=== PATIENT | male | born 1950 | race African-American/Black ===

== ENCOUNTER 2020-05-30 17:24 | Observation (INO) ==
[2020-05-30] MEDS ORDERED: SODIUM CHLORIDE 0.9% 1,000 ML IV STA (18:38)
[2020-05-30] MEDS ORDERED: PANTOPRAZOLE 40 MG VIAL IV STA (18:38)
[2020-05-30] MEDS ORDERED: ONDANSETRON 4 MG/2 ML VIAL IV STA (18:38)
[2020-05-30 19:48] LABS: Basophils % 0.3 % (0.0-0.8); Hematocrit 42.5 VOL% (42.0-52.0); Hemoglobin 14.2 GM/DL (14.0-18.0); Immature Granulocytes % 0.7 %; Immature Granulocytes Absolute 0.05 #; Lymphocytes # 1.4 10*3/uL (1.4-4.0); Lymphocytes % 18.8 % (21.2-54.2); Mean Corpuscular HGB Conc 33.4 GM/DL (32-36); Mean Corpuscular Volume 86.9 FL (87-102); Mean Platelet Volume 10.1 FL (9.6-12.0); Monocytes % 6.3 % (1.7-12.7); Neutrophils % 73.9 % (38.7-73.9); Platelet Count 266 T/CUMM (130-400); Red Blood Count 4.89 MC/CUMM (3.8-5.5); Red Cell Distribution Width 13.1 % (9.3-17.3); White Blood Count 7.6 T/CUMM (4-12)
[2020-05-30 20:16] LABS: Alanine Aminotransferase 41 U/L (16-61); Albumin 2.5 G/DL (3.4-5.0); Alkaline Phosphatase 134 U/L (45-117); Amylase 115 U/L (25-115); Aspartate Amino Transferase 70 U/L (0-37); Blood Urea Nitrogen 64 MG/DL (7-18); Calcium 9.3 MG/DL (8.5-10.1); Estimated Glom Filtration Rate 38 ML/MIN; Glucose 329 MG/DL (74-106); Osmolality,Calculated 307.5 MOS/KG (273-304); Total Protein 8.3 G/DL (6.4-8.3); Troponin I < 0.015 NG/ML (0.00-0.045)
[2020-05-30] MEDS ORDERED: DEXTROSE 50% 25 GM/50 ML VIAL IV PRN (21:33)
[2020-05-30] MEDS ORDERED: GLUCAGON 1 MG VIAL IM PRN (21:33)
[2020-05-30] MEDS ORDERED: ACETAMINOPHEN 325 MG TABLET PO PRN (21:38)
[2020-05-30] MEDS ORDERED: ONDANSETRON 4 MG/2 ML VIAL IV PRN (21:38)
[2020-05-30 21:48] LABS: Apearance,Urine Slightly Hazy (Clear); Bacteria,Urine Many /HPF (Few); Bilirubin,Urine Negative (Negative); Blood, Urine Negative (Negative); Glucose,Urine (UA) Negative (Negative); Hyaline Casts,Urine 19 /LPF (0-3); Ketones,Urine Negative (Negative); Mucus,Urine Few /LPF (Occasional); Nitrite,Urine Negative (Negative); Protein,Urine 30 MG/DL; RBC,Urine 1 /HPF (0-4); Squamous Epithelial Cell,Urine Occasional /HPF (0-10); Urine Color Yellow (Yellow); Urine Specific Gravity 1.014 (1.001-1.035); Urine Urobilinogen < 2.0 EU/DL (0.2-1.0); WBC,Urine 1 /HPF (0-6)
[2020-05-30] MEDS: SODIUM CHLORIDE 0.9% 1,000 ML IV SCH (22:00)
[2020-05-31 05:51] LABS: Albumin 2.3 G/DL (3.4-5.0); Bilirubin,Total 0.6 MG/DL (0.2-1.0); Calcium 8.8 MG/DL (8.5-10.1); Total Protein 7.5 G/DL (6.4-8.3)
[2020-05-31] MEDS: SODIUM CHLORIDE 0.9% 1,000 ML IV SCH (07:03)
[2020-05-31] MEDS: INSULIN REGULAR 100 UNIT/ML SUBCUT SCH ×4 (08:46→21:20)
[2020-05-31] MEDS ORDERED: BISACODYL 10 MG SUPP RECTAL PRN (08:57)
[2020-05-31] MEDS: levETIRAcetam 500 MG TABLET PO SCH ×2 (12:46→21:18)
[2020-05-31] MEDS: ASPIRIN EC 81 MG TABLET PO SCH (12:46)
[2020-05-31] MEDS: PHENYTOIN ER 100 MG CAPSULE PO SCH ×2 (12:46→21:17)
[2020-05-31] MEDS: FAMOTIDINE 20 MG TABLET PO SCH ×2 (12:47→21:19)
[2020-05-31] MEDS: cilostazoL 50 MG TABLET PO SCH ×2 (12:47→21:20)
[2020-05-31] MEDS: amLODIPine 10 MG TABLET PO SCH (12:47)
[2020-05-31] MEDS: SODIUM CHLORIDE 0.45% 1,000 ML IV SCH (12:49)
[2020-05-31] MEDS ORDERED: LABETALOL 20 MG/4 ML SYRINGE IV ONE (13:15)
[2020-05-31] MEDS ORDERED: hydrALAZINE 25 MG TABLET PO SCH (15:00)
[2020-05-31] MEDS ORDERED: hydrALAZINE 10 MG TABLET PO SCH (17:07)
[2020-05-31] MEDS ORDERED: INSULIN GLARGINE 100 UNIT/ML SUBCUT SCH (21:00)
[2020-05-31] MEDS ORDERED: TAMSULOSIN 0.4 MG CAPSULE PO SCH (21:00)
[2020-05-31] MEDS ORDERED: GABAPENTIN 400 MG CAPSULE PO SCH (21:00)
[2020-05-31] MEDS ORDERED: DONEPEZIL 10 MG TABLET PO SCH (21:00)
[2020-05-31] MEDS: DOCUSATE SODIUM 100 MG CAPSULE PO SCH (21:17)
[2020-05-31] MEDS: hydrALAZINE 10 MG TABLET PO SCH (21:17)
[2020-05-31] MEDS: POLYETHYLENE GLYCOL POWDER 17 GM PACK PO SCH (21:19)
[2020-05-31] MEDS: RIVAROXABAN 2.5 MG TABLET PO SCH (21:20)
[2020-06-01] MEDS: SODIUM CHLORIDE 0.45% 1,000 ML IV SCH (05:41)
[2020-06-01 07:23] LABS: Calcium 8.7 MG/DL (8.5-10.1); Osmolality,Calculated 296.6 MOS/KG (273-304)
[2020-06-01] MEDS: INSULIN REGULAR 100 UNIT/ML SUBCUT SCH ×3 (08:32→16:19)
[2020-06-01] MEDS: POLYETHYLENE GLYCOL POWDER 17 GM PACK PO SCH (08:33)
[2020-06-01] MEDS: PHENYTOIN ER 100 MG CAPSULE PO SCH (08:34)
[2020-06-01] MEDS: levETIRAcetam 500 MG TABLET PO SCH (08:35)
[2020-06-01] MEDS: DOCUSATE SODIUM 100 MG CAPSULE PO SCH (08:37)
[2020-06-01] MEDS: hydrALAZINE 10 MG TABLET PO SCH (08:37)
[2020-06-01] MEDS: amLODIPine 10 MG TABLET PO SCH (08:37)
[2020-06-01] MEDS: cilostazoL 50 MG TABLET PO SCH (08:37)
[2020-06-01] MEDS: ASPIRIN EC 81 MG TABLET PO SCH (08:38)
[2020-06-01] MEDS: FAMOTIDINE 20 MG TABLET PO SCH (08:38)
[2020-06-01] MEDS: RIVAROXABAN 2.5 MG TABLET PO SCH (08:39)
[2020-06-01] MEDS ORDERED: ATORVASTATIN 40 MG TABLET PO SCH (09:00)
[2020-06-01 09:40] LABS: Basophils % 0.1 % (0.0-0.8); Eosinophils % 0.3 % (0.00-10.9); Hematocrit 35.3 VOL% (42.0-52.0); Hemoglobin 11.9 GM/DL (14.0-18.0); Immature Granulocytes Absolute 0.09 #; Lymphocytes # 2.2 10*3/uL (1.4-4.0); Lymphocytes % 24.6 % (21.2-54.2); Mean Corpuscular HGB Conc 33.7 GM/DL (32-36); Mean Corpuscular Volume 85.7 FL (87-102); Monocytes % 5.5 % (1.7-12.7); Neutrophils % 68.5 % (38.7-73.9); Platelet Count 254 T/CUMM (130-400); Red Blood Count 4.12 MC/CUMM (3.8-5.5); Red Cell Distribution Width 13.1 % (9.3-17.3); White Blood Count 8.8 T/CUMM (4-12)
[2020-06-01 10:02] LABS: Hypochromasia Slight; Lymphocytes 20 % (20-55); Microcytosis Slight; Platelet Estimate Adequate; Segmented Neutrophils 76 % (50-85); Total Cells Counted 100
[2020-06-01 16:19] VITALS: BP 157/77
[2020-06-01] MEDS ORDERED: INSULIN GLARGINE 100 UNIT/ML SUBCUT SCH (21:00)
[2020-06-01] MEDS ORDERED: hydrALAZINE 25 MG TABLET PO SCH (21:00)
[2020-06-02] MEDS ORDERED: AMMONIUM LACTATE 12% LOTION 240 ML BOTTLE TOP SCH (09:00)
== END 2020-06-01 17:56 | disposition home or self-care (01) ==
LOC: EDBD → EDUNIT# → N.ED 17:24 → N.EDINP 17:24 → N.2E 23:38
PROVIDERS: ADMIT Hospitalist; ATTEND Hospitalist

== ENCOUNTER 2020-08-08 12:24 | Inpatient (IN) ==
[2020-08-08] MEDS ORDERED: SODIUM CHLORIDE 0.9% 1,000 ML IV STA (12:50)
[2020-08-08] MEDS ORDERED: MEROPENEM 1,000 MG in SODIUM CHLORIDE 0.9% 100 ML IV STA (12:52)
[2020-08-08] MEDS ORDERED: VANCOMYCIN INJ 1,000 MG in SODIUM CHLORIDE 0.9% 250 ML IV STA (12:53)
[2020-08-08 14:48] LABS: Basophils # 0.1 10*3/uL (0.0-0.2); Basophils % 0.3 % (0.0-0.8); Eosinophils % 0.2 % (0.00-10.9); Hematocrit 40.3 VOL% (42.0-52.0); Hemoglobin 13.6 GM/DL (14.0-18.0); Immature Granulocytes % 0.6 %; Immature Granulocytes Absolute 0.09 #; Lymphocytes # 1.5 10*3/uL (1.4-4.0); Lymphocytes % 9.9 % (21.2-54.2); Mean Corpuscular HGB Conc 33.7 GM/DL (32-36); Mean Corpuscular Volume 83.6 FL (87-102); Mean Platelet Volume 9.6 FL (9.6-12.0); Monocytes % 3.9 % (1.7-12.7); Neutrophils % 85.1 % (38.7-73.9); Platelet Count 502 T/CUMM (130-400); Red Blood Count 4.82 MC/CUMM (3.8-5.5); Red Cell Distribution Width 13.6 % (9.3-17.3); White Blood Count 14.7 T/CUMM (4-12)
[2020-08-08] MEDS ORDERED: MEROPENEM 500 MG VIAL ONE (14:57)
[2020-08-08] MEDS ORDERED: ONDANSETRON 4 MG/2 ML VIAL IV PRN (15:09)
[2020-08-08] MEDS ORDERED: ACETAMINOPHEN 325 MG TABLET PO PRN (15:09)
[2020-08-08] MEDS ORDERED: DEXTROSE 50% 25 GM/50 ML VIAL IV PRN (15:09)
[2020-08-08] MEDS ORDERED: GLUCAGON 1 MG VIAL IM PRN (15:09)
[2020-08-08 15:15] LABS: Albumin 2.2 G/DL (3.4-5.0); Bilirubin,Total 0.4 MG/DL (0.2-1.0); Calcium 10.2 MG/DL (8.5-10.1); Osmolality,Calculated 281.8 MOS/KG (273-304); Total Protein 9.5 G/DL (6.4-8.3)
[2020-08-08 15:39] LABS: INR 1.1; PT Patient Result 12.2 SECS (9.8-11.9); Partial Thromboplastin Time 35.3 SECS (23.9-33.8)
[2020-08-08 16:03] LABS: Risk Ratio 3.49; Thyroid Stimulating Hormone 1.5 uIU/ml (0.358-3.74); VLDL CHOLESTEROL 30.2 MG/DL
[2020-08-08] MEDS: INSULIN LISPRO 100 UNIT/ML SUBCUT SCH (17:32)
[2020-08-08] MEDS: levETIRAcetam 250 MG TABLET PO SCH (17:33)
[2020-08-08] MEDS: VANCOMYCIN INJ 1,250 MG in SODIUM CHLORIDE 0.9% 250 ML IV SCH (21:13)
[2020-08-09] MEDS: MEROPENEM 500 MG in SODIUM CHLORIDE 0.9% 100 ML IV SCH ×4 (00:04→17:05)
[2020-08-09] MEDS: INSULIN LISPRO 100 UNIT/ML SUBCUT SCH ×4 (00:51→17:32)
[2020-08-09 05:55] LABS: Basophils # 0.1 10*3/uL (0.0-0.2); Basophils % 0.3 % (0.0-0.8); Eosinophils # 0.1 10*3/uL (0.0-0.87); Eosinophils % 0.6 % (0.00-10.9); Hematocrit 33.9 VOL% (42.0-52.0); Hemoglobin 11.6 GM/DL (14.0-18.0); Immature Granulocytes % 0.8 %; Immature Granulocytes Absolute 0.12 #; Lymphocytes # 1.5 10*3/uL (1.4-4.0); Lymphocytes % 10.1 % (21.2-54.2); Mean Corpuscular HGB Conc 34.2 GM/DL (32-36); Mean Corpuscular Volume 83.1 FL (87-102); Mean Platelet Volume 9.6 FL (9.6-12.0); Monocytes % 5.2 % (1.7-12.7); Platelet Count 464 T/CUMM (130-400); Red Blood Count 4.08 MC/CUMM (3.8-5.5); Red Cell Distribution Width 13.6 % (9.3-17.3); White Blood Count 14.5 T/CUMM (4-12)
[2020-08-09 06:30] LABS: Bilirubin,Total 0.4 MG/DL (0.2-1.0); Calcium 9.7 MG/DL (8.5-10.1); Total Protein 7.9 G/DL (6.4-8.3)
[2020-08-09] MEDS: levETIRAcetam 250 MG TABLET PO SCH ×2 (08:27→17:06)
[2020-08-09] MEDS: PANTOPRAZOLE 40 MG TABLET PO SCH (08:27)
[2020-08-09] MEDS ORDERED: LIDOCAINE 1% 20 ML VIAL ONE (12:39)
[2020-08-09] MEDS ORDERED: LIDOCAINE 1%/EPI INJ 20 ML VIAL ONE (12:39)
[2020-08-09] MEDS ORDERED: LACTATED RINGERS 1,000 ML IV SCH (13:00)
[2020-08-09] MEDS ORDERED: propofoL 200 MG/20 ML VIAL IV ONE (13:25)
[2020-08-09] MEDS ORDERED: fentaNYL 100 MCG/2 ML VIAL ONE (13:26)
[2020-08-09] MEDS ORDERED: MIDAZOLAM 2 MG/2 ML VIAL ONE (13:26)
[2020-08-09] MEDS ORDERED: INSULIN GLARGINE 100 UNIT/ML SUBCUT SCH (21:00)
[2020-08-09] MEDS: DONEPEZIL 10 MG TABLET PO SCH (21:16)
[2020-08-09] MEDS: hydrALAZINE 25 MG TABLET PO SCH (21:16)
[2020-08-09] MEDS: TAMSULOSIN 0.4 MG CAPSULE PO SCH (21:17)
[2020-08-09] MEDS: PHENYTOIN ER 100 MG CAPSULE PO SCH (21:17)
[2020-08-09] MEDS: GABAPENTIN 400 MG CAPSULE PO SCH (21:17)
[2020-08-09] MEDS: POLYETHYLENE GLYCOL POWDER 17 GM PACK PO SCH (21:17)
[2020-08-09] MEDS: VANCOMYCIN INJ 1,250 MG in SODIUM CHLORIDE 0.9% 250 ML IV SCH (21:18)
[2020-08-10] MEDS: MEROPENEM 500 MG in SODIUM CHLORIDE 0.9% 100 ML IV SCH ×5 (00:20→23:35)
[2020-08-10] MEDS: INSULIN LISPRO 100 UNIT/ML SUBCUT SCH ×5 (00:49→23:34)
[2020-08-10 08:40] LABS: Basophils % 0.4 % (0.0-0.8); Eosinophils # 0.1 10*3/uL (0.0-0.87); Eosinophils % 0.9 % (0.00-10.9); Hematocrit 33.8 VOL% (42.0-52.0); Hemoglobin 11.2 GM/DL (14.0-18.0); Immature Granulocytes % 1.3 %; Immature Granulocytes Absolute 0.12 #; Lymphocytes # 1.4 10*3/uL (1.4-4.0); Lymphocytes % 15.3 % (21.2-54.2); Mean Corpuscular HGB Conc 33.1 GM/DL (32-36); Mean Corpuscular Volume 85.1 FL (87-102); Mean Platelet Volume 9.6 FL (9.6-12.0); Monocytes % 8.4 % (1.7-12.7); Neutrophils % 73.7 % (38.7-73.9); Platelet Count 409 T/CUMM (130-400); Red Blood Count 3.97 MC/CUMM (3.8-5.5); Red Cell Distribution Width 13.9 % (9.3-17.3); White Blood Count 9.3 T/CUMM (4-12)
[2020-08-10 09:10] LABS: Alanine Aminotransferase 29 U/L (16-61); Albumin 1.7 G/DL (3.4-5.0); Alkaline Phosphatase 111 U/L (45-117); Aspartate Amino Transferase 55 U/L (0-37); Bilirubin,Total < 0.39 MG/DL (0.2-1.0); Blood Urea Nitrogen 15 MG/DL (7-18); Calcium 9.2 MG/DL (8.5-10.1); Estimated Glom Filtration Rate 91 ML/MIN; Glucose 127 MG/DL (74-106); Osmolality,Calculated 283.3 MOS/KG (273-304); Total Protein 7.4 G/DL (6.4-8.3)
[2020-08-10] MEDS: amLODIPine 10 MG TABLET PO SCH (10:15)
[2020-08-10] MEDS: PANTOPRAZOLE 40 MG TABLET PO SCH (10:15)
[2020-08-10] MEDS: ATORVASTATIN 40 MG TABLET PO SCH (10:15)
[2020-08-10] MEDS: MULTIVITAMIN (CENTRUM) TABLET PO SCH (10:15)
[2020-08-10] MEDS: levETIRAcetam 250 MG TABLET PO SCH ×2 (10:15→18:15)
[2020-08-10] MEDS: hydrALAZINE 25 MG TABLET PO SCH ×2 (10:15→21:45)
[2020-08-10] MEDS: hydroCHLOROthiazide 25 MG TABLET PO SCH (10:15)
[2020-08-10] MEDS: POLYETHYLENE GLYCOL POWDER 17 GM PACK PO SCH ×2 (10:15→21:45)
[2020-08-10] MEDS: PHENYTOIN ER 100 MG CAPSULE PO SCH ×2 (10:15→21:45)
[2020-08-10] MEDS ORDERED: INSULIN GLARGINE 100 UNIT/ML SUBCUT SCH (14:15)
[2020-08-10] MEDS: ASCORBIC ACID 500 MG TABLET PO SCH (15:05)
[2020-08-10] MEDS: TRIAMCINOLONE 0.1% CREAM 15 GM TUBE TOP SCH (15:06)
[2020-08-10] MEDS: MENTHOL/ZINC OXIDE OINT 71 GM JAR TOP SCH ×2 (15:06→21:49)
[2020-08-10] MEDS: VANCOMYCIN INJ 1,250 MG in SODIUM CHLORIDE 0.9% 250 ML IV SCH (21:45)
[2020-08-10] MEDS: DONEPEZIL 10 MG TABLET PO SCH (21:45)
[2020-08-10] MEDS: GABAPENTIN 400 MG CAPSULE PO SCH (21:45)
[2020-08-10] MEDS: TAMSULOSIN 0.4 MG CAPSULE PO SCH (21:45)
[2020-08-11] MEDS: INSULIN LISPRO 100 UNIT/ML SUBCUT SCH ×2 (06:11→13:30)
[2020-08-11] MEDS: MEROPENEM 500 MG in SODIUM CHLORIDE 0.9% 100 ML IV SCH ×2 (06:11→11:22)
[2020-08-11 06:18] LABS: Basophils # 0.1 10*3/uL (0.0-0.2); Basophils % 0.5 % (0.0-0.8); Eosinophils # 0.1 10*3/uL (0.0-0.87); Eosinophils % 0.9 % (0.00-10.9); Hematocrit 29.8 VOL% (42.0-52.0); Hemoglobin 9.9 GM/DL (14.0-18.0); Immature Granulocytes % 1.4 %; Immature Granulocytes Absolute 0.15 #; Lymphocytes # 2.1 10*3/uL (1.4-4.0); Lymphocytes % 19.8 % (21.2-54.2); Mean Corpuscular HGB Conc 33.2 GM/DL (32-36); Mean Corpuscular Volume 84.2 FL (87-102); Mean Platelet Volume 9.6 FL (9.6-12.0); Monocytes % 8.5 % (1.7-12.7); Neutrophils % 68.9 % (38.7-73.9); Platelet Count 392 T/CUMM (130-400); Red Blood Count 3.54 MC/CUMM (3.8-5.5); Red Cell Distribution Width 13.7 % (9.3-17.3); White Blood Count 10.8 T/CUMM (4-12)
[2020-08-11 06:46] LABS: Alanine Aminotransferase 30 U/L (16-61); Albumin 1.6 G/DL (3.4-5.0); Alkaline Phosphatase 111 U/L (45-117); Aspartate Amino Transferase 45 U/L (0-37); Bilirubin,Total < 0.39 MG/DL (0.2-1.0); Blood Urea Nitrogen 13 MG/DL (7-18); Calcium 8.7 MG/DL (8.5-10.1); Estimated Glom Filtration Rate 116 ML/MIN; Glucose 99 MG/DL (74-106); Osmolality,Calculated 274.7 MOS/KG (273-304); Total Protein 6.7 G/DL (6.4-8.3)
[2020-08-11] MEDS ORDERED: POTASSIUM CHLORIDE 20 MEQ TABLET PO ONE (07:39)
[2020-08-11] MEDS: ASCORBIC ACID 500 MG TABLET PO SCH (09:14)
[2020-08-11] MEDS: levETIRAcetam 250 MG TABLET PO SCH (09:14)
[2020-08-11] MEDS: ATORVASTATIN 40 MG TABLET PO SCH (09:15)
[2020-08-11] MEDS: hydrALAZINE 25 MG TABLET PO SCH (09:15)
[2020-08-11] MEDS: PHENYTOIN ER 100 MG CAPSULE PO SCH (09:15)
[2020-08-11] MEDS: hydroCHLOROthiazide 25 MG TABLET PO SCH (09:15)
[2020-08-11] MEDS: MENTHOL/ZINC OXIDE OINT 71 GM JAR TOP SCH (09:15)
[2020-08-11] MEDS: MULTIVITAMIN (CENTRUM) TABLET PO SCH (09:15)
[2020-08-11] MEDS: amLODIPine 10 MG TABLET PO SCH (09:15)
[2020-08-11] MEDS: POLYETHYLENE GLYCOL POWDER 17 GM PACK PO SCH (09:15)
[2020-08-11] MEDS: PANTOPRAZOLE 40 MG TABLET PO SCH (09:15)
[2020-08-11] MEDS: TRIAMCINOLONE 0.1% CREAM 15 GM TUBE TOP SCH (09:16)
[2020-08-11] MEDS ORDERED: SODIUM HYPOCHLORITE 0.25% IRRIG 473 ML BOTTLE TOP SCH (14:00)
[2020-08-11 15:22] VITALS: BP 150/72
[2020-08-11] MEDS ORDERED: VANCOMYCIN INJ 1,500 MG in SODIUM CHLORIDE 0.9% 500 ML IV SCH (21:00)
[2020-08-11] MEDS ORDERED: CIPROFLOXACIN 500 MG TABLET PO SCH (21:00)
[2020-08-12] MEDS ORDERED: POTASSIUM CHLORIDE 20 MEQ TABLET PO SCH (09:00)
== END 2020-08-11 17:27 | DRG 197 ==
LOC: EDBD → EDUNIT# → N.ED 12:24 → N.EDINP 13:21 → N.3E 16:56
PROVIDERS: ADMIT Hospitalist; ATTEND Hospitalist

== ENCOUNTER 2020-08-28 07:33 | Inpatient (IN) ==
[~2020-08-28 07:33] MED LIST: ceFAZolin 1,000 MG in SYRINGE 1 EACH IV ONE
[2020-08-28 08:19] LABS: Basophils # 0.1 10*3/uL (0.0-0.2); Basophils % 0.3 % (0.0-0.8); Eosinophils % 0.2 % (0.00-10.9); Hematocrit 34.5 VOL% (42.0-52.0); Hemoglobin 11.6 GM/DL (14.0-18.0); Immature Granulocytes % 0.7 %; Lymphocytes # 1.3 10*3/uL (1.4-4.0); Lymphocytes % 9.2 % (21.2-54.2); Mean Corpuscular HGB Conc 33.6 GM/DL (32-36); Mean Corpuscular Volume 82.3 FL (87-102); Mean Platelet Volume 8.9 FL (9.6-12.0); Monocytes % 7.1 % (1.7-12.7); Neutrophils % 82.5 % (38.7-73.9); Platelet Count 425 T/CUMM (130-400); Red Blood Count 4.19 MC/CUMM (3.8-5.5); Red Cell Distribution Width 14.2 % (9.3-17.3); White Blood Count 14.5 T/CUMM (4-12)
[2020-08-28 08:44] LABS: Albumin 1.7 G/DL (3.4-5.0); Bilirubin,Total 0.5 MG/DL (0.2-1.0); Calcium 9.3 MG/DL (8.5-10.1); Osmolality,Calculated 276.7 MOS/KG (273-304); Total Protein 7.9 G/DL (6.4-8.3)
[2020-08-28] MEDS ORDERED: INSULIN REGULAR 100 UNIT/ML IV STA (09:08)
[2020-08-28] MEDS ORDERED: levETIRAcetam 500 MG TABLET PO STA (09:09)
[2020-08-28] MEDS ORDERED: PHENYTOIN ER 100 MG CAPSULE PO STA (09:10)
[2020-08-28] MEDS ORDERED: INSULIN REGULAR 100 UNIT/ML ONE (10:03)
[2020-08-28] MEDS ORDERED: ceFAZolin 1,000 MG VIAL ONE (10:29)
[2020-08-28] MEDS ORDERED: LACTATED RINGERS 1,000 ML IV SCH (10:30)
[2020-08-28] MEDS ORDERED: MORPHINE 4 MG/1 ML VIAL IV PRN (12:23)
[2020-08-28] MEDS ORDERED: ONDANSETRON 4 MG/2 ML VIAL IV PRN ×2 (12:23→13:38)
[2020-08-28] MEDS ORDERED: BISACODYL 10 MG SUPP RECTAL PRN (12:26)
[2020-08-28] MEDS ORDERED: GLUCAGON 1 MG VIAL IM PRN ×2 (12:28→16:44)
[2020-08-28] MEDS ORDERED: DEXTROSE 50% 25 GM/50 ML VIAL IV PRN ×2 (12:28→16:44)
[2020-08-28] MEDS ORDERED: INSULIN REGULAR 100 UNIT/ML IV ONE (12:30)
[2020-08-28] MEDS ORDERED: propofoL 200 MG/20 ML VIAL IV ONE (12:33)
[2020-08-28] MEDS ORDERED: ONDANSETRON 4 MG/2 ML VIAL ONE (12:34)
[2020-08-28] MEDS ORDERED: LIDOCAINE 2% 5 ML VIAL ONE (12:34)
[2020-08-28] MEDS ORDERED: PHENYLEPHRINE 10 MG/1 ML VIAL IV ONE (12:34)
[2020-08-28] MEDS ORDERED: fentaNYL 100 MCG/2 ML VIAL ONE (12:34)
[2020-08-28] MEDS ORDERED: SEVOFLURANE 1 UNIT/15 MINUTE INH ONE (12:34)
[2020-08-28] MEDS ORDERED: ROCURONIUM 100 MG/10 ML VIAL IV ONE (12:34)
[2020-08-28] MEDS ORDERED: ACETAMINOPHEN 1,000 MG/100 ML VIAL IV ONE (12:34)
[2020-08-28] MEDS: MORPHINE 10 MG/1 ML VIAL IV PRN ×2 (13:40→13:45)
[2020-08-28] MEDS: CIPROFLOXACIN 500 MG TABLET PO SCH (15:34)
[2020-08-28] MEDS: INSULIN LISPRO 100 UNIT/ML SUBCUT SCH (18:20)
[2020-08-28] MEDS: FAMOTIDINE 20 MG TABLET PO SCH (18:20)
[2020-08-28] MEDS: POTASSIUM CHLORIDE 20 MEQ TABLET PO PRN ×2 (18:20→22:11)
[2020-08-28] MEDS: ceFAZolin 2,000 MG in PREMIX 1 EACH IV SCH (18:20)
[2020-08-28] MEDS: cilostazoL 50 MG TABLET PO SCH (18:20)
[2020-08-28] MEDS ORDERED: TAMSULOSIN 0.4 MG CAPSULE PO SCH (21:00)
[2020-08-28] MEDS: GABAPENTIN 400 MG CAPSULE PO SCH (22:11)
[2020-08-28] MEDS: PHENYTOIN ER 100 MG CAPSULE PO SCH (22:11)
[2020-08-28] MEDS: hydrALAZINE 25 MG TABLET PO SCH (22:11)
[2020-08-28] MEDS: DOCUSATE SODIUM 100 MG CAPSULE PO SCH (22:11)
[2020-08-29] MEDS: CIPROFLOXACIN 500 MG TABLET PO SCH ×3 (00:22→23:38)
[2020-08-29] MEDS: POTASSIUM CHLORIDE 20 MEQ TABLET PO PRN ×2 (00:22→02:09)
[2020-08-29] MEDS: ceFAZolin 2,000 MG in PREMIX 1 EACH IV SCH (02:09)
[2020-08-29 05:44] LABS: Basophils # 0.1 10*3/uL (0.0-0.2); Basophils % 0.4 % (0.0-0.8); Eosinophils # 0.1 10*3/uL (0.0-0.87); Eosinophils % 0.5 % (0.00-10.9); Hemoglobin 10.1 GM/DL (14.0-18.0); Immature Granulocytes % 0.8 %; Immature Granulocytes Absolute 0.09 #; Lymphocytes # 1.6 10*3/uL (1.4-4.0); Lymphocytes % 13.6 % (21.2-54.2); Mean Corpuscular HGB Conc 32.6 GM/DL (32-36); Mean Corpuscular Volume 82.2 FL (87-102); Mean Platelet Volume 9.2 FL (9.6-12.0); Monocytes % 6.8 % (1.7-12.7); Neutrophils % 77.9 % (38.7-73.9); Platelet Count 390 T/CUMM (130-400); Red Blood Count 3.77 MC/CUMM (3.8-5.5); Red Cell Distribution Width 14.3 % (9.3-17.3); White Blood Count 11.8 T/CUMM (4-12)
[2020-08-29 06:08] LABS: Osmolality,Calculated 274.2 MOS/KG (273-304)
[2020-08-29] MEDS: INSULIN LISPRO 100 UNIT/ML SUBCUT SCH ×3 (07:59→17:23)
[2020-08-29] MEDS: PHENYTOIN ER 100 MG CAPSULE PO SCH ×2 (09:06→20:43)
[2020-08-29] MEDS: DOCUSATE SODIUM 100 MG CAPSULE PO SCH ×2 (09:06→20:43)
[2020-08-29] MEDS: levETIRAcetam 500 MG TABLET PO SCH ×2 (09:06→17:22)
[2020-08-29] MEDS: ATORVASTATIN 40 MG TABLET PO SCH (09:06)
[2020-08-29] MEDS: ASCORBIC ACID 500 MG TABLET PO SCH (09:06)
[2020-08-29] MEDS: FAMOTIDINE 20 MG TABLET PO SCH ×2 (09:07→17:22)
[2020-08-29] MEDS: hydrALAZINE 25 MG TABLET PO SCH ×2 (09:07→20:43)
[2020-08-29] MEDS: cilostazoL 50 MG TABLET PO SCH ×2 (09:07→17:22)
[2020-08-29] MEDS: amLODIPine 10 MG TABLET PO SCH (09:55)
[2020-08-29 16:20] LABS: Amorphous Crystals,Urine Occasional /HPF (Few); Bilirubin,Urine Negative (Negative); Blood, Urine Small mg/dL (Negative); Glucose,Urine (UA) 150 mg/dL (Negative); Ketones,Urine Negative (Negative); Nitrite,Urine Negative (Negative); Protein,Urine 30 MG/DL; RBC,Urine 8 /HPF (0-4); Urine Appearance Slightly Hazy (Clear); Urine Color Yellow (Yellow); Urine Specific Gravity 1.014 (1.001-1.035); Urine Urobilinogen < 2.0 EU/DL (0.2-1.0); WBC,Urine 26 /HPF (0-6)
[2020-08-29] MEDS: GABAPENTIN 400 MG CAPSULE PO SCH (20:44)
[2020-08-29] MEDS: TAMSULOSIN 0.4 MG CAPSULE PO SCH (20:44)
[2020-08-29] MEDS: RIVAROXABAN 2.5 MG TABLET PO SCH (21:29)
[2020-08-30 05:40] LABS: Basophils # 0.1 10*3/uL (0.0-0.2); Basophils % 0.5 % (0.0-0.8); Eosinophils # 0.1 10*3/uL (0.0-0.87); Eosinophils % 0.8 % (0.00-10.9); Hematocrit 26.4 VOL% (42.0-52.0); Hemoglobin 8.7 GM/DL (14.0-18.0); Immature Granulocytes % 1.7 %; Immature Granulocytes Absolute 0.17 #; Lymphocytes # 1.4 10*3/uL (1.4-4.0); Lymphocytes % 14.6 % (21.2-54.2); Mean Corpuscular Volume 83.5 FL (87-102); Mean Platelet Volume 9.1 FL (9.6-12.0); Monocytes % 8.5 % (1.7-12.7); Neutrophils % 73.9 % (38.7-73.9); Platelet Count 377 T/CUMM (130-400); Red Blood Count 3.16 MC/CUMM (3.8-5.5); Red Cell Distribution Width 14.3 % (9.3-17.3); White Blood Count 9.9 T/CUMM (4-12)
[2020-08-30 06:21] LABS: Calcium 8.8 MG/DL (8.5-10.1); Osmolality,Calculated 273.1 MOS/KG (273-304)
[2020-08-30] MEDS: INSULIN LISPRO 100 UNIT/ML SUBCUT SCH ×3 (08:04→17:06)
[2020-08-30] MEDS: levETIRAcetam 500 MG TABLET PO SCH ×2 (09:31→17:06)
[2020-08-30] MEDS: ASPIRIN EC 81 MG TABLET PO SCH (09:31)
[2020-08-30] MEDS: ATORVASTATIN 40 MG TABLET PO SCH (09:31)
[2020-08-30] MEDS: TAMSULOSIN 0.4 MG CAPSULE PO SCH ×2 (09:31→21:55)
[2020-08-30] MEDS: amLODIPine 10 MG TABLET PO SCH (09:32)
[2020-08-30] MEDS: ASCORBIC ACID 500 MG TABLET PO SCH (09:32)
[2020-08-30] MEDS: cilostazoL 50 MG TABLET PO SCH ×2 (09:32→17:06)
[2020-08-30] MEDS: hydrALAZINE 25 MG TABLET PO SCH ×2 (09:32→21:57)
[2020-08-30] MEDS: FAMOTIDINE 20 MG TABLET PO SCH ×2 (09:32→17:06)
[2020-08-30] MEDS: DOCUSATE SODIUM 100 MG CAPSULE PO SCH ×2 (09:32→21:56)
[2020-08-30] MEDS: PHENYTOIN ER 100 MG CAPSULE PO SCH ×2 (09:32→22:03)
[2020-08-30] MEDS: RIVAROXABAN 2.5 MG TABLET PO SCH ×2 (09:49→21:56)
[2020-08-30] MEDS: CIPROFLOXACIN 500 MG TABLET PO SCH ×2 (12:10→23:54)
[2020-08-30] MEDS: INSULIN GLARGINE 100 UNIT/ML SUBCUT SCH (14:49)
[2020-08-30] MEDS: GABAPENTIN 400 MG CAPSULE PO SCH (21:55)
[2020-08-31] MEDS: INSULIN LISPRO 100 UNIT/ML SUBCUT SCH ×2 (07:56→11:39)
[2020-08-31] MEDS: INSULIN GLARGINE 100 UNIT/ML SUBCUT SCH (08:42)
[2020-08-31] MEDS: PHENYTOIN ER 100 MG CAPSULE PO SCH (08:42)
[2020-08-31] MEDS: TAMSULOSIN 0.4 MG CAPSULE PO SCH (08:43)
[2020-08-31] MEDS: ASPIRIN EC 81 MG TABLET PO SCH (08:43)
[2020-08-31] MEDS: cilostazoL 50 MG TABLET PO SCH (08:43)
[2020-08-31] MEDS: ATORVASTATIN 40 MG TABLET PO SCH (08:43)
[2020-08-31] MEDS: levETIRAcetam 500 MG TABLET PO SCH (08:43)
[2020-08-31] MEDS: FAMOTIDINE 20 MG TABLET PO SCH (08:43)
[2020-08-31] MEDS: amLODIPine 10 MG TABLET PO SCH (08:43)
[2020-08-31] MEDS: DOCUSATE SODIUM 100 MG CAPSULE PO SCH (08:43)
[2020-08-31] MEDS: ASCORBIC ACID 500 MG TABLET PO SCH (08:44)
[2020-08-31] MEDS: hydrALAZINE 25 MG TABLET PO SCH (08:44)
[2020-08-31] MEDS: RIVAROXABAN 2.5 MG TABLET PO SCH (09:24)
[2020-08-31] MEDS: CIPROFLOXACIN 500 MG TABLET PO SCH (11:38)
[2020-08-31 11:42] VITALS: BP 124/66
== END 2020-08-31 12:04 | disposition home or self-care (01) | DRG 305 ==
LOC: N.SDSINP 07:33 → N.3E 15:27
PROVIDERS: ADMIT Surgery; ATTEND Surgery

== ENCOUNTER 2021-06-22 09:49 | Inpatient (IN) ==
[2021-06-22 13:06] LABS: Basophils # 0.1 10*3/uL (0.0-0.2); Basophils % 0.4 % (0.0-0.8); Eosinophils % 0.3 % (0.00-10.9); Hematocrit 31.6 VOL% (42.0-52.0); Hemoglobin 10.5 GM/DL (14.0-18.0); Immature Granulocytes Absolute 0.12 #; Lymphocytes # 1.8 10*3/uL (1.4-4.0); Lymphocytes % 14.5 % (21.2-54.2); Mean Corpuscular HGB Conc 33.2 GM/DL (32-36); Mean Corpuscular Volume 84.5 FL (87-102); Neutrophils % 75.8 % (38.7-73.9); Platelet Count 436 T/CUMM (130-400); Red Blood Count 3.74 MC/CUMM (3.8-5.5); Red Cell Distribution Width 13.8 % (9.3-17.3); White Blood Count 12.4 T/CUMM (4-12)
[2021-06-22 13:15] LABS: PT Patient Result 10.9 SECS (10.5-12.0)
[2021-06-22 13:27] LABS: Alanine Aminotransferase 19 U/L (16-61); Albumin 2.1 G/DL (3.4-5.0); Alkaline Phosphatase 118 U/L (45-117); Aspartate Amino Transferase 21 U/L (0-37); Bilirubin,Total < 0.39 MG/DL (0.20-1.00); Blood Urea Nitrogen 40 MG/DL (7-18); Calcium 8.9 MG/DL (8.5-10.1); Carbon Dioxide 23 MMOL/L (21-32); Estimated Glom Filtration Rate 24 ML/MIN; Glucose 179 MG/DL (74-106); Osmolality,Calculated 283.1 MOS/KG (273-304); Potassium 3.7 MMOL/L (3.5-5.1); Sodium 135 MMOL/L (136-145)
[2021-06-22] MEDS ORDERED: SODIUM CHLORIDE 0.9% 1,000 ML IV STA (13:55)
[2021-06-22] MEDS ORDERED: ONDANSETRON 4 MG/2 ML VIAL IV PRN (15:11)
[2021-06-22] MEDS ORDERED: GLUCAGON 1 MG VIAL IM PRN (15:11)
[2021-06-22] MEDS ORDERED: ACETAMINOPHEN 325 MG TABLET PO PRN (15:11)
[2021-06-22] MEDS ORDERED: DEXTROSE 50% 25 GM/50 ML VIAL IV PRN (15:11)
[2021-06-22] MEDS: ENOXAPARIN 30 MG/0.3 ML SYRINGE SUBCUT SCH (17:16)
[2021-06-22] MEDS: ASPIRIN EC 81 MG TABLET PO SCH (17:16)
[2021-06-22] MEDS ORDERED: ATORVASTATIN 20 MG TABLET PO SCH (21:00)
[2021-06-22] MEDS: cilostazoL 50 MG TABLET PO SCH (22:45)
[2021-06-23] MEDS: LACTATED RINGERS 1,000 ML IV SCH ×3 (01:35→10:51)
[2021-06-23 05:45] LABS: Basophils # 0.1 10*3/uL (0.0-0.2); Basophils % 0.4 % (0.0-0.8); Eosinophils # 0.1 10*3/uL (0.0-0.87); Eosinophils % 0.6 % (0.00-10.9); Hematocrit 30.4 VOL% (42.0-52.0); Hemoglobin 10.5 GM/DL (14.0-18.0); Immature Granulocytes % 0.8 %; Lymphocytes # 1.6 10*3/uL (1.4-4.0); Lymphocytes % 13.1 % (21.2-54.2); Mean Corpuscular HGB Conc 34.5 GM/DL (32-36); Mean Corpuscular Volume 84.2 FL (87-102); Monocytes % 7.5 % (1.7-12.7); Neutrophils % 77.6 % (38.7-73.9); Platelet Count 460 T/CUMM (130-400); Red Blood Count 3.61 MC/CUMM (3.8-5.5); Red Cell Distribution Width 13.7 % (9.3-17.3)
[2021-06-23 06:10] LABS: Calcium 9.2 MG/DL (8.5-10.1); Potassium 3.6 MMOL/L (3.5-5.1)
[2021-06-23] MEDS ORDERED: hydrALAZINE 20 MG/1 ML VIAL IV PRN (08:58)
[2021-06-23] MEDS: cilostazoL 50 MG TABLET PO SCH ×2 (09:19→17:00)
[2021-06-23] MEDS: ASPIRIN EC 81 MG TABLET PO SCH (09:19)
[2021-06-23] MEDS ORDERED: DEXTROSE 50% 25 GM/50 ML VIAL IV PRN (13:47)
[2021-06-23] MEDS: INSULIN LISPRO 100 UNIT/ML SUBCUT SCH ×2 (16:08→22:09)
[2021-06-23] MEDS: ENOXAPARIN 30 MG/0.3 ML SYRINGE SUBCUT SCH (16:34)
[2021-06-23] MEDS: FAMOTIDINE 20 MG TABLET PO SCH (17:00)
[2021-06-23] MEDS: levETIRAcetam 250 MG TABLET PO SCH (17:01)
[2021-06-23] MEDS: SODIUM CHLORIDE 0.9% 1,000 ML IV SCH (18:54)
[2021-06-23] MEDS: GABAPENTIN 400 MG CAPSULE PO SCH (22:02)
[2021-06-23] MEDS: TAMSULOSIN 0.4 MG CAPSULE PO SCH (22:02)
[2021-06-23] MEDS: DOCUSATE SODIUM 100 MG CAPSULE PO SCH (22:02)
[2021-06-23] MEDS: DONEPEZIL 10 MG TABLET PO SCH (22:02)
[2021-06-23] MEDS: RIVAROXABAN 2.5 MG TABLET PO SCH (22:02)
[2021-06-23] MEDS: PHENYTOIN ER 100 MG CAPSULE PO SCH (22:02)
[2021-06-23] MEDS: hydrALAZINE 25 MG TABLET PO SCH (22:03)
[2021-06-23] MEDS: MIRTAZAPINE 15 MG TABLET PO SCH (22:03)
[2021-06-23] MEDS: INSULIN GLARGINE 100 UNIT/ML SUBCUT SCH (22:05)
[2021-06-24 05:31] LABS: Basophils # 0.1 10*3/uL (0.0-0.2); Basophils % 0.4 % (0.0-0.8); Eosinophils # 0.1 10*3/uL (0.0-0.87); Eosinophils % 0.4 % (0.00-10.9); Hematocrit 32.2 VOL% (42.0-52.0); Hemoglobin 11.3 GM/DL (14.0-18.0); Immature Granulocytes Absolute 0.13 #; Lymphocytes # 1.4 10*3/uL (1.4-4.0); Lymphocytes % 10.4 % (21.2-54.2); Mean Corpuscular HGB Conc 35.1 GM/DL (32-36); Mean Corpuscular Volume 83.4 FL (87-102); Mean Platelet Volume 9.4 FL (9.6-12.0); Monocytes % 6.5 % (1.7-12.7); Neutrophils % 81.3 % (38.7-73.9); Platelet Count 538 T/CUMM (130-400); Red Blood Count 3.86 MC/CUMM (3.8-5.5); Red Cell Distribution Width 13.7 % (9.3-17.3); White Blood Count 13.6 T/CUMM (4-12)
[2021-06-24 05:51] LABS: Albumin 2.1 G/DL (3.4-5.0); Bilirubin,Total 0.6 MG/DL (0.20-1.00); Calcium 8.9 MG/DL (8.5-10.1); Osmolality,Calculated 288.7 MOS/KG (273-304); Total Protein 8.1 G/DL (6.4-8.2)
[2021-06-24 05:53] LABS: Risk Ratio 3.74; VLDL Cholesterol 29.2 MG/DL
[2021-06-24] MEDS: levETIRAcetam 250 MG TABLET PO SCH ×2 (08:56→16:57)
[2021-06-24] MEDS: DOCUSATE SODIUM 100 MG CAPSULE PO SCH ×2 (08:57→21:21)
[2021-06-24] MEDS: RIVAROXABAN 2.5 MG TABLET PO SCH ×2 (08:57→21:21)
[2021-06-24] MEDS: FAMOTIDINE 20 MG TABLET PO SCH ×2 (08:57→16:57)
[2021-06-24] MEDS: INSULIN LISPRO 100 UNIT/ML SUBCUT SCH ×4 (08:57→20:45)
[2021-06-24] MEDS: cilostazoL 50 MG TABLET PO SCH ×2 (08:57→16:57)
[2021-06-24] MEDS: PHENYTOIN ER 100 MG CAPSULE PO SCH ×2 (08:57→21:22)
[2021-06-24] MEDS: ATORVASTATIN 40 MG TABLET PO SCH (08:57)
[2021-06-24] MEDS: ASPIRIN EC 81 MG TABLET PO SCH (08:57)
[2021-06-24] MEDS: ESCITALOPRAM 10 MG TABLET PO SCH (08:57)
[2021-06-24] MEDS: TAMSULOSIN 0.4 MG CAPSULE PO SCH ×2 (08:57→21:21)
[2021-06-24] MEDS: SODIUM CHLORIDE 0.9% 1,000 ML IV SCH ×2 (08:58→16:57)
[2021-06-24] MEDS: hydrALAZINE 25 MG TABLET PO SCH ×2 (09:01→21:21)
[2021-06-24] MEDS: amLODIPine 10 MG TABLET PO SCH (09:02)
[2021-06-24] MEDS ORDERED: SKIN HEALING OINT (AQUAPHOR) 50 GM TUBE TOP PRN (16:05)
[2021-06-24] MEDS: INSULIN GLARGINE 100 UNIT/ML SUBCUT SCH (20:46)
[2021-06-24] MEDS: GABAPENTIN 400 MG CAPSULE PO SCH (21:19)
[2021-06-24] MEDS: DONEPEZIL 10 MG TABLET PO SCH (21:21)
[2021-06-24] MEDS: MIRTAZAPINE 15 MG TABLET PO SCH (21:22)
[2021-06-25 05:32] LABS: Basophils % 0.2 % (0.0-0.8); Eosinophils # 0.1 10*3/uL (0.0-0.87); Eosinophils % 0.6 % (0.00-10.9); Hematocrit 30.8 VOL% (42.0-52.0); Hemoglobin 10.3 GM/DL (14.0-18.0); Immature Granulocytes % 1.2 %; Immature Granulocytes Absolute 0.14 #; Lymphocytes # 1.1 10*3/uL (1.4-4.0); Lymphocytes % 9.7 % (21.2-54.2); Mean Corpuscular HGB Conc 33.4 GM/DL (32-36); Mean Corpuscular Volume 84.6 FL (87-102); Mean Platelet Volume 8.9 FL (9.6-12.0); Monocytes % 5.5 % (1.7-12.7); Neutrophils % 82.8 % (38.7-73.9); Platelet Count 469 T/CUMM (130-400); Red Blood Count 3.64 MC/CUMM (3.8-5.5); Red Cell Distribution Width 13.7 % (9.3-17.3); White Blood Count 11.5 T/CUMM (4-12)
[2021-06-25 06:01] LABS: Calcium 8.2 MG/DL (8.5-10.1); Osmolality,Calculated 294.4 MOS/KG (273-304); Potassium 3.7 MMOL/L (3.5-5.1)
[2021-06-25] MEDS: INSULIN LISPRO 100 UNIT/ML SUBCUT SCH ×2 (09:12→12:13)
[2021-06-25] MEDS: ASPIRIN EC 81 MG TABLET PO SCH (09:13)
[2021-06-25] MEDS: hydrALAZINE 25 MG TABLET PO SCH (09:13)
[2021-06-25] MEDS: DOCUSATE SODIUM 100 MG CAPSULE PO SCH (09:13)
[2021-06-25] MEDS: levETIRAcetam 250 MG TABLET PO SCH (09:14)
[2021-06-25] MEDS: PHENYTOIN ER 100 MG CAPSULE PO SCH (09:14)
[2021-06-25] MEDS: TAMSULOSIN 0.4 MG CAPSULE PO SCH (09:14)
[2021-06-25] MEDS: ESCITALOPRAM 10 MG TABLET PO SCH (09:14)
[2021-06-25] MEDS: cilostazoL 50 MG TABLET PO SCH (09:15)
[2021-06-25] MEDS: amLODIPine 10 MG TABLET PO SCH (09:15)
[2021-06-25] MEDS: FAMOTIDINE 20 MG TABLET PO SCH (09:15)
[2021-06-25] MEDS: ATORVASTATIN 40 MG TABLET PO SCH (09:15)
[2021-06-25] MEDS: RIVAROXABAN 2.5 MG TABLET PO SCH (09:15)
[2021-06-25 18:08] VITALS: BP 126/55
== END 2021-06-25 15:57 | DRG 469 ==
LOC: EDUNIT# → EDBD → N.ED 09:49 → SUATTDRO 15:11 → N.EDINP 15:11 → N.3E 18:55
PROVIDERS: ADMIT Emergency Medicine; ATTEND Internal Medicine